=== PATIENT | female | born 1995 | race Two or more races ===

== ENCOUNTER 2024-05-16 17:12 | Emergency (ER) | payer SELFPAY ==
[2024-05-16 18:40] LABS: BASOPHILS PERCENT AUTO 0.2 % (0.0-1.0); EOSINOPHILS ABSOLUTE AUTO 0.1 K/mm3 (0.0-0.4); EOSINOPHILS PERCENT AUTO 1.1 % (0.0-6.0); HEMATOCRIT 41.4 % (37.0-47.0); HEMOGLOBIN 14.1 gm/dl (12.0-16.0); IMMATURE GRAN ABSOLUTE AUTO 0.03 K/mm3 (0.00-0.05); IMMATURE GRAN PERCENT AUTO 0.3 % (0.0-0.4); LYMPHOCYTES ABSOLUTE AUTO 2.2 K/mm3 (1.0-4.8); LYMPHOCYTES PERCENT AUTO 22.1 % (24.0-44.0); MEAN CORPUSCULAR HEMOGLOBIN 30.9 pg (28.0-32.0); MEAN CORPUSCULAR HGB CONC 34.1 g/dl (32.0-36.0); MEAN CORPUSCULAR VOLUME 90.8 fl (83.0-99.0); MONOCYTES ABSOLUTE AUTO 0.7 K/mm3 (0.0-0.8); MONOCYTES PERCENT AUTO 6.8 % (0.0-8.0); NEUTROPHILS PERCENT AUTO 69.5 % (41.0-71.0); PLATELET COUNT,PLT 327 K/mm3 (150-400); RED BLOOD CELL COUNT 4.56 M/mm3 (4.10-5.30); WHITE BLOOD CELL COUNT,WBC 10.03 K/mm3 (3.9-11.3)
[2024-05-16 19:22] LABS: A/G RATIO 0.8 (1-2); ALBUMIN 3.6 g/dl (3.4-5.0); ANION GAP 14.9 (5-15); BILIRUBIN TOTAL 0.3 mg/dL (0.2-1.0); CALCIUM 9.2 mg/dL (8.5-10.1); CREATININE 0.5 mg/dL (0.55-1.02); EST CRCL DRUG DOSING (CG) 146.77 mL/min; POTASSIUM,K 3.9 mEq/L (3.5-5.1); PROTEIN TOTAL,TP 8.1 g/dl (6.4-8.2)
== END 2024-05-16 20:50 | disposition home or self-care (01) ==
LOC: JD.ED 17:12
DX: O20.8 Other hemorrhage in early pregnancy (principal); Z3A.10 10 weeks gestation of pregnancy; Z79.899 Other long term (current) drug therapy; Z90.49 Acquired absence of other specified parts of digestive tract; Z86.16 Personal history of COVID-19
CPT/HCPCS: 36415; 76817; 76817-26; 80053; 84702; 85025; 86900; 86901; 99284

== ENCOUNTER 2024-06-16 22:31 | Emergency (ER) | payer SELFPAY ==
[2024-06-16] MEDS: Ondansetron 4 MG Tab.DIS PO ONE (23:35)
[2024-06-16] MEDS: oxyCODONE 5 MG Tab PO ONE (23:36)
[2024-06-16] MEDS: Ondansetron 4 MG/2 ML SDV IM ONE (23:36)
[2024-06-16] MEDS: Acetaminophen 325 MG Tab PO ONE (23:37)
== END 2024-06-17 00:30 | disposition home or self-care (01) ==
LOC: JD.ED 22:31 → JD.OB 22:31 → JD.ED 22:31 → EDSTATUS 22:33 → JD.ED 22:58 → JD.OB 06-17 00:30
DX: Z79.899 Other long term (current) drug therapy (principal); Z86.16 Personal history of COVID-19; Z90.49 Acquired absence of other specified parts of digestive tract
CPT/HCPCS: 99284; A9270-GY; J2405

== ENCOUNTER 2024-07-01 21:33 | Emergency (ER) | payer SELFPAY ==
[2024-07-01] MEDS ORDERED: Sodium Chloride 0.9% 10 ML Syringe FLUSH PRN (21:50)
[2024-07-01 22:16] LABS: BASOPHILS PERCENT AUTO 0.2 % (0.0-1.0); EOSINOPHILS ABSOLUTE AUTO 0.1 K/mm3 (0.0-0.4); EOSINOPHILS PERCENT AUTO 1.1 % (0.0-6.0); HEMATOCRIT 35.7 % (37.0-47.0); HEMOGLOBIN 12.1 gm/dl (12.0-16.0); IMMATURE GRAN ABSOLUTE AUTO 0.06 K/mm3 (0.00-0.05); IMMATURE GRAN PERCENT AUTO 0.6 % (0.0-0.4); LYMPHOCYTES ABSOLUTE AUTO 2.5 K/mm3 (1.0-4.8); LYMPHOCYTES PERCENT AUTO 25.4 % (24.0-44.0); MEAN CORPUSCULAR HEMOGLOBIN 31.3 pg (28.0-32.0); MEAN CORPUSCULAR HGB CONC 33.9 g/dl (32.0-36.0); MEAN CORPUSCULAR VOLUME 92.5 fl (83.0-99.0); MONOCYTES ABSOLUTE AUTO 0.7 K/mm3 (0.0-0.8); MONOCYTES PERCENT AUTO 7.3 % (0.0-8.0); NEUTROPHILS ABSOLUTE AUTO 6.4 K/mm3 (1.8-7.7); NEUTROPHILS PERCENT AUTO 65.4 % (41.0-71.0); PLATELET COUNT,PLT 335 K/mm3 (150-400); RED BLOOD CELL COUNT 3.86 M/mm3 (4.10-5.30); WHITE BLOOD CELL COUNT,WBC 9.82 K/mm3 (3.9-11.3)
[2024-07-01 22:50] LABS: A/G RATIO 0.7 (1-2); ANION GAP 17.9 (5-15); BILIRUBIN TOTAL 0.3 mg/dL (0.2-1.0); CALCIUM 8.7 mg/dL (8.5-10.1); CREATININE 0.5 mg/dL (0.55-1.02); EST CRCL DRUG DOSING (CG) 161.44 mL/min; PROTEIN TOTAL,TP 7.5 g/dl (6.4-8.2)
[2024-07-01 22:54] LABS: POTASSIUM,K 3.9 mEq/L (3.5-5.1)
[2024-07-01] MEDS: Sodium Chloride 0.9% 1,000 ML IV ONE (23:05)
[2024-07-01] MEDS ORDERED: Naloxone 0.4 MG/ML SDV IVPUSH PRN (23:40)
[2024-07-01] MEDS: Morphine 4 MG/ML Syringe IVPUSH ONE (23:48)
[2024-07-02] MEDS: Misoprostol 100 MCG Tab PO ONE (00:13)
[2024-07-02] MEDS: Misoprostol 200 MCG Tab ONE (00:56)
[2024-07-02] MEDS ORDERED: Ibuprofen 800 MG Tab PO PRN (01:11)
== END 2024-07-02 12:20 | disposition home or self-care (01) ==
LOC: JD.ED 21:33
DX: O03.9 Complete or unspecified spontaneous abortion without complication (principal); Z79.899 Other long term (current) drug therapy; Z86.16 Personal history of COVID-19
CPT/HCPCS: 36415; 76805; 80053; 84112; 84702; 85025; 86850; 86900; 86901; 96361; 96374; 99284; A9270; J2270; J7030